=== PATIENT | male | born 1960 | race Caucasian/White ===

== ENCOUNTER 2018-11-28 09:16 | Emergency (ER) | payer BC ==
[2018-11-28 09:37] VITALS: BP 151/81
--- NOTE | 2018-11-28 09:41 | UC ---
Head Injury HPI - HPI Summary HPI Summary: 58 yo male presents with right nare pain and swelling. He tells me that he has a hx of MRSA and recently has had a runny nose and, thus, blowing his nose often. He also used nose hair trimmers 3-4 days ago. Since that time has noticed increasing redness, pain, and swelling to his right nare. He is also diabetic. Denies fever or chills. - History Of Current Complaint Chief Complaint: Tammie Stated Complaint: NOSE INJURY Time Seen by Provider: 11/28/18 09:41 Hx Obtained From: Patient Onset/Duration: Gradual Onset Severity Currently: Mild Severity Initially: Mild Pain Intensity: 3 Pain Scale Used: 0-10 Numeric - Allergies/Home Medications Allergies/Adverse Reactions: Allergies Allergy/AdvReac Type Severity Reaction Status Date / Time Sulfa (Sulfonamide Allergy Nausea Verified 11/28/18 09:27 Antibiotics) PMH/Surg Hx/FS Hx/Imm Hx Endocrine History: Diabetes, Hypothyroidism, Dyslipidemia Cardiovascular History: Hypertension - Surgical History Surgical History: Yes Surgery Procedure, Year, and Place: r cataract and vitrectomy; left 2nd toe shortened - Family History Known Family History: Positive: None - Social History Lives: With Family Alcohol Use: None Substance Use Type: None Smoking Status (MU): Never Smoked Tobacco Review of Systems All Other Systems Reviewed And Are Negative: Yes Constitutional: Positive: Negative Skin: Positive: Other - Right nare pain and swelling Eyes: Positive: Negative ENT: Positive: Negative Respiratory: Positive: Negative Cardiovascular: Positive: Negative Gastrointestinal: Positive: Negative Neurovascular: Positive: Negative Neurological: Positive: Negative Psychological: Positive: Negative Physical Exam - Summary Physical Exam Summary: GENERAL: NAD. WDWN. No pain distress. SKIN: No rashes, sores, lesions, or open wounds. HEENT: Head: AT/NC Eyes: EOM intact. Conjunctiva clear without inflammation or discharge. Ears: Hearing grossly normal. TMs intact, no bulging, erythema, or edema. Nose: Nasal mucosa mildly swollen and erythematous without discharge. RIGHT NARE with moderate edema, erythema, and TTP. No abscess appreciated. Throat: Posterior oropharynx without exudates, erythema, or tonsillar enlargement. Uvula midline. NECK: Supple. Nontender. No lymphadenopathy. CHEST: CTAB. No r/r/w. No accessory muscle use. Breathing comfortably and in no distress. CV: RRR. Without m/r/g. Pulses intact. NEURO: Alert. PSYCH: Age appropriate behavior. Triage Information Reviewed: Yes Vital Signs: Initial Vital Signs Temp 98.8 F 11/28/18 09:29 Pulse 87 11/28/18 09:29 Resp 18 11/28/18 09:29 BP 151/81 11/28/18 09:29 Pulse Ox 98 11/28/18 09:29 Vital Signs Reviewed: Yes Head Injury Course/Dx - Course Course Of Treatment: Given his hx of MRSA and DM will treat with clindamycin and bactroban. - Differential Dx/Diagnosis Provider Diagnosis: Infection of skin due to methicillin resistant Staphylococcus aureus (MRSA) Discharge - Sign-Out/Discharge Documenting (check all that apply): Patient Departure All imaging exams completed and their final reports reviewed: No Studies - Discharge Plan Condition: Stable Disposition: HOME Prescriptions: Clindamycin Cap(NF) [Clindamycin Cap 300 mg Cap(NF)] 300 mg PO TID #21 cap Mupirocin 2% OINT* [Bactroban 2 % Oint*] 1 applic TOPICAL BID #1 tube Patient Education Materials: MRSA (Methicillin-Resistant Staphylococcus Aureus ) (ED) Referrals: Darwin Casarez MD [Primary Care Provider] - Additional Instructions: If you develop a fever, shortness of breath, chest pain, new or worsening symptoms - please call your PCP or go to the ED. Your blood pressure was high at todays visit. Please see your primary provider within 4 weeks for recheck and re-evaluation. - Billing Disposition and Condition Condition: STABLE Disposition: Home
== END 2018-11-28 10:15 | disposition home or self-care (01) ==
LOC: UCEAST 09:16
DX: A49.02 Methicillin resistant Staphylococcus aureus infection, unspecified site (principal); E11.9 Type 2 diabetes mellitus without complications; I10 Essential (primary) hypertension; Z88.2 Allergy status to sulfonamides
CPT/HCPCS: 99212; G0463